=== PATIENT | male | born 1965 | race Caucasian/White ===

== ENCOUNTER 2019-10-14 12:42 | Inpatient (IN) ==
[2019-10-14] MEDS ORDERED: DilTIAZem 50 MG in 0.9 % Sodium Chloride 40 ML IVC SCH (13:00)
[2019-10-14 13:15] LABS: Basophils # 0.1 K/mcL (0.0-0.2); Basophils % 0.6 %; Eosinophils # 0.2 K/mcL (0.0-0.6); Eosinophils % 2.7 %; Hematocrit 37.5 % (37.5-50.1); Hemoglobin 11.3 g/dL (12.9-16.9); Immature Granulocytes % 0.3 % (0-4); Lymphocytes # 0.9 K/mcL (0.6-4.6); Mean Corpuscular HGB Conc 30.1 g/dL (31.6-35.5); Mean Corpuscular Hemoglobin 27.2 pg (28.0-33.3); Mean Corpuscular Volume 90.4 fL (83.0-100.0); Mean Platelet Volume 9.7 fL (9.4-12.4); Monocytes # 0.8 K/mcL (0.0-1.3); Monocytes % 8.6 %; Neutrophils # 6.9 K/mcL (1.6-8.9); Platelet Count 219 K/mcL (140-400); Red Blood Count 4.15 M/mcL (4.19-5.50); Red Cell Distribution Width 16.1 % (11.5-14.5); Segmented Neutrophils % 77.8 %; White Blood Count 8.8 K/mcL (4.3-11.1)
[2019-10-14 13:19] LABS: INR 1.2; Prothrombin Time 13.6 Seconds (9.4-12.1)
[2019-10-14 13:22] LABS: Activated Partial Thrombo Time 42.7 Seconds (26.0-36.0)
[2019-10-14] MEDS ORDERED: 0.9 % Sodium Chloride 250 ML ONE (13:30)
[2019-10-14 13:36] LABS: BUN/Creatinine Ratio 16 (6-26); Blood Urea Nitrogen 30 mg/dL (6-20); Calcium 8.9 mg/dL (8.6-10.3); Carbon Dioxide 20 mEq/L (23-29); Chloride 113 mEq/L (98-107); Glucose 98 mg/dL (70-105); Osmolality,Calculated 298 (280-300); Sodium 141 mEq/L (136-145); eGFR For African Americans 44 (> 60); eGFR For Non-African Americans 36 (> 60)
[2019-10-14 13:37] LABS: Troponin I < 0.03 ng/mL (< 0.04)
[2019-10-14 13:51] LABS: Thyroid Stimulating Hormone 1.145 mcIU/mL (0.340-5.600)
[2019-10-14] MEDS ORDERED: Furosemide 20 MG/2 ML VIAL IVP ONE (14:08)
[2019-10-14] MEDS ORDERED: *HR* Heparin 5,000 UNIT/ML VIAL IVP PRN ×4 (14:27→22:23)
[2019-10-14] MEDS ORDERED: *HR* Heparin 5,000 UNIT/ML VIAL IVP ONE (14:27)
[2019-10-14] MEDS ORDERED: Heparin 25,000 UNIT/250 ML D5W 25,000 UNIT/250 ML IV.SOLN IVC SCH (14:30)
[2019-10-14] MEDS ORDERED: Naloxone 0.4 MG/ML INJ IVP PRN ×2 (14:59→22:23)
[2019-10-14] MEDS: Furosemide 40 MG/4 ML VIAL IVP SCH ×2 (17:44→21:46)
[2019-10-14] MEDS ORDERED: Furosemide 40 MG/4 ML VIAL IVP SCH (18:00)
[2019-10-14] MEDS: DilTIAZem 50 MG in 0.9 % Sodium Chloride 40 ML IVC SCH ×2 (18:35→22:06)
[2019-10-14] MEDS ORDERED: *HR* Metoprolol 5 MG/5 ML VIAL IVP ONE ×2 (18:39→18:44)
[2019-10-14 21:20] LABS: Magnesium 2.1 mg/dL (1.6-2.6); Potassium 4.8 mEq/L (3.5-5.1)
[2019-10-14] MEDS ORDERED: Amiodarone Premix 150 MG/100 ML BAG IVPB ONE (22:23)
[2019-10-14 22:58] LABS: Adenovirus Not Detected (Not Detect); Bordetella Pertussis Not Detected (Not Detect); Chlamydophila pneumoniae Not Detected (Not Detect); Coronavirus 229E Not Detected (Not Detect); Coronavirus HKU1 Not Detected (Not Detect); Coronavirus NL63 Not Detected (Not Detect); Coronavirus OC43 Not Detected (Not Detect); Human Metapneumovirus Not Detected (Not Detect); Human Rhinovirus/Enterovirus Not Detected (Not Detect); Influenza A Subtype 2009 H1 Not Detected (Not Detect); Influenza B Not Detected (Not Detect); Mycoplasma pneumoniae Not Detected (Not Detect); Parainfluenza Virus 1 Not Detected (Not Detect); Parainfluenza Virus 2 Not Detected (Not Detect); Parainfluenza Virus 3 Not Detected (Not Detect); Parainfluenza Virus 4 Not Detected (Not Detect); Respiratory Syncytial Virus Not Detected (Not Detect)
[2019-10-14] MEDS ORDERED: Amiodarone Premix 360 MG/200 ML BAG IVC ONE (23:00)
[2019-10-15 01:30] LABS: Basophils % 0.5 %; Eosinophils # 0.2 K/mcL (0.0-0.6); Eosinophils % 2.5 %; Hemoglobin 10.9 g/dL (12.9-16.9); Immature Granulocytes % 0.5 % (0-4); Lymphocytes # 1.1 K/mcL (0.6-4.6); Mean Corpuscular HGB Conc 30.3 g/dL (31.6-35.5); Mean Corpuscular Hemoglobin 27.2 pg (28.0-33.3); Mean Corpuscular Volume 89.8 fL (83.0-100.0); Mean Platelet Volume 10.3 fL (9.4-12.4); Monocytes # 0.7 K/mcL (0.0-1.3); Monocytes % 8.2 %; Neutrophils # 6.5 K/mcL (1.6-8.9); Platelet Count 215 K/mcL (140-400); Red Blood Count 4.01 M/mcL (4.19-5.50); Red Cell Distribution Width 16.1 % (11.5-14.5); Segmented Neutrophils % 75.3 %; White Blood Count 8.7 K/mcL (4.3-11.1)
[2019-10-15 01:45] LABS: Estimated Average Glucose 111 mg/dl
[2019-10-15 01:46] LABS: Calcium 8.6 mg/dL (8.6-10.3); Phosphorous 4.3 mg/dL (2.7-4.5)
[2019-10-15 01:48] LABS: % Iron Saturation 12 % (20-55); Iron 41 mcg/dL (65-175); Transferrin 235 mg/dL (203-362)
[2019-10-15 02:06] LABS: Ferritin 32 ng/mL (20-250)
[2019-10-15 02:12] LABS: Folate 8.3 ng/mL (3.0-16.0)
[2019-10-15] MEDS: Amiodarone Premix 360 MG/200 ML BAG IVC SCH ×2 (05:17→18:19)
[2019-10-15] MEDS: Heparin 25,000 UNIT/250 ML D5W 25,000 UNIT/250 ML IV.SOLN IVC SCH ×2 (07:23→15:34)
[2019-10-15] MEDS: Furosemide 40 MG/4 ML VIAL IVP SCH ×2 (08:49→20:56)
[2019-10-15] MEDS ORDERED: Furosemide 40 MG/4 ML VIAL IVP ONE (14:00)
[2019-10-15 21:01] LABS: ABG Base Excess -2 mEq/L (-2 to 3); ABG HCO3 24 mEq/L (21-27); ABG Oxygen Saturation 96 % (95-98); ABG PCO2 46 mmHg (35-45); ABG PH 7.33 pH Units (7.32-7.45); ABG PO2 85 mmHg (85-104); ABG TCO2 26 mEq/L (20-26)
[2019-10-16] MEDS: Heparin 25,000 UNIT/250 ML D5W 25,000 UNIT/250 ML IV.SOLN IVC SCH ×2 (00:20→17:36)
[2019-10-16 04:18] LABS: Basophils # 0.1 K/mcL (0.0-0.2); Basophils % 0.6 %; Eosinophils # 0.2 K/mcL (0.0-0.6); Eosinophils % 2.2 %; Hematocrit 37.6 % (37.5-50.1); Hemoglobin 11.3 g/dL (12.9-16.9); Immature Granulocytes % 0.8 % (0-4); Lymphocytes # 0.9 K/mcL (0.6-4.6); Lymphocytes % 10.6 %; Mean Corpuscular HGB Conc 30.1 g/dL (31.6-35.5); Mean Corpuscular Hemoglobin 26.8 pg (28.0-33.3); Mean Corpuscular Volume 89.3 fL (83.0-100.0); Mean Platelet Volume 10.3 fL (9.4-12.4); Monocytes # 0.6 K/mcL (0.0-1.3); Monocytes % 7.2 %; Neutrophils # 6.7 K/mcL (1.6-8.9); Platelet Count 220 K/mcL (140-400); Red Blood Count 4.21 M/mcL (4.19-5.50); Red Cell Distribution Width 16.1 % (11.5-14.5); Segmented Neutrophils % 78.6 %; White Blood Count 8.5 K/mcL (4.3-11.1)
[2019-10-16 04:27] LABS: Calcium 8.7 mg/dL (8.6-10.3); Potassium 4.5 mEq/L (3.5-5.1)
[2019-10-16] MEDS: Amiodarone Premix 360 MG/200 ML BAG IVC SCH ×2 (07:17→20:27)
[2019-10-16] MEDS: Furosemide 40 MG/4 ML VIAL IVP SCH ×2 (08:55→20:15)
[2019-10-16] MEDS ORDERED: *HR* FentaNYL (PF) 100 MCG/2 ML VIAL IVP PRN (12:54)
[2019-10-16] MEDS ORDERED: *HR* Midazolam HCl 5 MG/5 ML VIAL IVP PRN (12:54)
[2019-10-16] MEDS ORDERED: 0.9 % Sodium Chloride 500 ML IVC ONE (12:54)
[2019-10-16] MEDS ORDERED: Lidocaine Viscous Oral Soln 15 ML SOLUTION MM PRN (12:54)
[2019-10-16] MEDS: Metoprolol XL (24 HR) Succ 25 MG TAB.ER.24H PO SCH ×2 (17:02→20:14)
[2019-10-16] MEDS ORDERED: Metoprolol XL (24 HR) Succ 25 MG TAB.ER.24H PO SCH (21:00)
[2019-10-17 01:06] LABS: Basophils % 0.4 %; Eosinophils # 0.3 K/mcL (0.0-0.6); Eosinophils % 2.9 %; Hematocrit 39.3 % (37.5-50.1); Hemoglobin 11.8 g/dL (12.9-16.9); Immature Granulocytes % 0.9 % (0-4); Lymphocytes % 11.6 %; Mean Corpuscular Hemoglobin 26.4 pg (28.0-33.3); Mean Corpuscular Volume 87.9 fL (83.0-100.0); Mean Platelet Volume 9.9 fL (9.4-12.4); Monocytes # 0.7 K/mcL (0.0-1.3); Monocytes % 8.1 %; Neutrophils # 6.8 K/mcL (1.6-8.9); Platelet Count 250 K/mcL (140-400); Red Blood Count 4.47 M/mcL (4.19-5.50); Red Cell Distribution Width 16.1 % (11.5-14.5); Segmented Neutrophils % 76.1 %; White Blood Count 8.9 K/mcL (4.3-11.1)
[2019-10-17 01:25] LABS: Magnesium 1.7 mg/dL (1.6-2.6); Uric Acid 12.4 mg/dL (2.3-7.6)
[2019-10-17 01:27] LABS: Calcium 8.9 mg/dL (8.6-10.3); Potassium 4.4 mEq/L (3.5-5.1)
[2019-10-17] MEDS: Metoprolol XL (24 HR) Succ 25 MG TAB.ER.24H PO SCH ×2 (08:24→20:35)
[2019-10-17] MEDS: Furosemide 40 MG/4 ML VIAL IVP SCH ×2 (08:25→20:36)
[2019-10-17] MEDS: Amiodarone Premix 360 MG/200 ML BAG IVC SCH ×2 (09:24→21:54)
[2019-10-17] MEDS ORDERED: Heparin 25,000 UNIT/250 ML D5W 25,000 UNIT/250 ML IV.SOLN IVC SCH (09:30)
[2019-10-17] MEDS: Heparin 25,000 UNIT/250 ML D5W 25,000 UNIT/250 ML IV.SOLN IVC SCH (12:08)
[2019-10-18 03:20] LABS: Potassium 4.2 mEq/L (3.5-5.1)
[2019-10-18] MEDS: Furosemide 40 MG/4 ML VIAL IVP SCH ×2 (07:44→20:05)
[2019-10-18] MEDS: Heparin 25,000 UNIT/250 ML D5W 25,000 UNIT/250 ML IV.SOLN IVC SCH ×3 (07:44→22:56)
[2019-10-18] MEDS: Metoprolol XL (24 HR) Succ 25 MG TAB.ER.24H PO SCH ×2 (07:44→20:05)
[2019-10-18] MEDS: Amiodarone Premix 360 MG/200 ML BAG IVC SCH (22:55)
[2019-10-19] MEDS ORDERED: Acetaminophen 325 MG TABLET PO ONE (01:35)
[2019-10-19 04:12] LABS: Potassium 4.2 mEq/L (3.5-5.1)
[2019-10-19] MEDS: Metoprolol XL (24 HR) Succ 25 MG TAB.ER.24H PO SCH ×2 (08:09→21:37)
[2019-10-19] MEDS: Furosemide 40 MG/4 ML VIAL IVP SCH ×2 (08:09→21:35)
[2019-10-19] MEDS: Amiodarone Premix 360 MG/200 ML BAG IVC SCH (11:20)
[2019-10-19] MEDS ORDERED: Lidocaine Viscous Oral Soln 15 ML SOLUTION MM PRN (12:40)
[2019-10-19] MEDS ORDERED: 0.9 % Sodium Chloride 500 ML IVC ONE (12:40)
[2019-10-19] MEDS ORDERED: Oxymetazoline Nasal SPRAY BOTTLE NS ONE (13:21)
[2019-10-19] MEDS: Heparin 25,000 UNIT/250 ML D5W 25,000 UNIT/250 ML IV.SOLN IVC SCH (16:08)
[2019-10-19] MEDS: Apixaban 5 MG TABLET PO SCH (21:35)
[2019-10-19] MEDS: *HR* Amiodarone 200 MG TABLET PO SCH (21:35)
[2019-10-19] MEDS ORDERED: Amiodarone Premix 360 MG/200 ML BAG IVC SCH (22:30)
[2019-10-20 05:02] LABS: Calcium 8.8 mg/dL (8.6-10.3); Potassium 4.5 mEq/L (3.5-5.1)
[2019-10-20] MEDS: Apixaban 5 MG TABLET PO SCH ×2 (08:54→20:26)
[2019-10-20] MEDS: *HR* Amiodarone 200 MG TABLET PO SCH ×2 (08:54→20:27)
[2019-10-20] MEDS: Furosemide 40 MG/4 ML VIAL IVP SCH (08:54)
[2019-10-20] MEDS: Metoprolol XL (24 HR) Succ 25 MG TAB.ER.24H PO SCH ×2 (08:54→20:27)
[2019-10-20] MEDS ORDERED: *HR* Amiodarone 200 MG TABLET PO ONE (09:45)
[2019-10-20] MEDS ORDERED: Furosemide 40 MG TABLET PO SCH (17:00)
[2019-10-21] MEDS: Heparin 25,000 UNIT/250 ML D5W 25,000 UNIT/250 ML IV.SOLN IVC SCH (03:53)
[2019-10-21 05:04] LABS: Basophils % 0.5 %; Eosinophils # 0.2 K/mcL (0.0-0.6); Eosinophils % 3.2 %; Hemoglobin 11.7 g/dL (12.9-16.9); Immature Granulocytes % 1.1 % (0-4); Mean Corpuscular HGB Conc 30.8 g/dL (31.6-35.5); Mean Corpuscular Hemoglobin 26.4 pg (28.0-33.3); Mean Corpuscular Volume 85.6 fL (83.0-100.0); Mean Platelet Volume 10.2 fL (9.4-12.4); Monocytes # 0.8 K/mcL (0.0-1.3); Monocytes % 11.2 %; Neutrophils # 5.3 K/mcL (1.6-8.9); Platelet Count 227 K/mcL (140-400); Red Blood Count 4.44 M/mcL (4.19-5.50); Red Cell Distribution Width 15.6 % (11.5-14.5); White Blood Count 7.4 K/mcL (4.3-11.1)
[2019-10-21] MEDS: *HR* Amiodarone 200 MG TABLET PO SCH (09:36)
[2019-10-21] MEDS: Metoprolol XL (24 HR) Succ 25 MG TAB.ER.24H PO SCH (09:36)
[2019-10-21 12:36] VITALS: BP 110/73
== END 2019-10-21 14:08 | disposition home health service (06) ==
LOC: EMEROOARM 12:42 → 2NENU 12:42 → SUATTDRO 16:21 → 2NENU 17:20 → 2NNU 22:14 → 2ANU 10-20 19:08
PROVIDERS: ADMIT Internal Medicine; ATTEND Internal Medicine

== ENCOUNTER 2020-03-23 16:28 | Inpatient (IN) ==
[2020-03-23] MEDS ORDERED: DilTIAZem 50 MG in 0.9 % Sodium Chloride 40 ML IVC SCH (18:30)
[2020-03-23] MEDS ORDERED: *HR* Metoprolol 5 MG/5 ML VIAL IVP PRN (18:30)
[2020-03-23 18:45] LABS: ABG Base Excess -3 mEq/L (-2 to 3); ABG HCO3 23 mEq/L (21-27); ABG Oxygen Saturation 97 % (95-98); ABG PCO2 43 mmHg (35-45); ABG PH 7.33 pH Units (7.32-7.45); ABG PO2 92 mmHg (85-104); ABG TCO2 24 mEq/L (20-26)
[2020-03-23] MEDS ORDERED: Naloxone 0.4 MG/ML INJ IVP PRN (19:36)
[2020-03-23] MEDS ORDERED: *HR* LORazepam 2 MG/ML VIAL IVP ONE (19:49)
[2020-03-23 20:21] LABS: Adenovirus Not Detected (Not Detect); Bordetella Pertussis Not Detected (Not Detect); Chlamydophila pneumoniae Not Detected (Not Detect); Coronavirus 229E Not Detected (Not Detect); Coronavirus HKU1 Not Detected (Not Detect); Coronavirus NL63 Not Detected (Not Detect); Coronavirus OC43 Not Detected (Not Detect); Human Metapneumovirus Not Detected (Not Detect); Human Rhinovirus/Enterovirus Not Detected (Not Detect); Influenza A Subtype 2009 H1 Not Detected (Not Detect); Influenza B Not Detected (Not Detect); Mycoplasma pneumoniae Not Detected (Not Detect); Parainfluenza Virus 1 Not Detected (Not Detect); Parainfluenza Virus 2 Not Detected (Not Detect); Parainfluenza Virus 3 Not Detected (Not Detect); Parainfluenza Virus 4 Not Detected (Not Detect); Respiratory Syncytial Virus Not Detected (Not Detect)
[2020-03-23 20:48] LABS: Basophils # 0.1 K/mcL (0.0-0.2); Basophils % 0.5 %; Eosinophils # 0.2 K/mcL (0.0-0.6); Eosinophils % 1.8 %; Hematocrit 35.9 % (37.5-50.1); Immature Granulocytes % 0.7 % (0-4); Lymphocytes % 9.7 %; Mean Corpuscular HGB Conc 30.6 g/dL (31.6-35.5); Mean Corpuscular Hemoglobin 27.2 pg (28.0-33.3); Mean Corpuscular Volume 88.6 fL (83.0-100.0); Mean Platelet Volume 9.9 fL (9.4-12.4); Monocytes # 0.8 K/mcL (0.0-1.3); Monocytes % 7.8 %; Neutrophils # 8.3 K/mcL (1.6-8.9); Platelet Count 243 K/mcL (140-400); Red Blood Count 4.05 M/mcL (4.19-5.50); Red Cell Distribution Width 17.2 % (11.5-14.5); Segmented Neutrophils % 79.5 %; White Blood Count 10.5 K/mcL (4.3-11.1)
[2020-03-23 21:07] LABS: Calcium 8.3 mg/dL (8.6-10.3); Magnesium 1.9 mg/dL (1.6-2.6); Phosphorous 5.5 mg/dL (2.7-4.5); Potassium 4.5 mEq/L (3.5-5.1)
[2020-03-23] MEDS ORDERED: Albumin 25% 25gram/100mL 25 GM/100 ML IV.SOLN IVPB ONE (21:47)
[2020-03-23] MEDS ORDERED: Furosemide 40 MG/4 ML VIAL IVP ONE (21:48)
[2020-03-23] MEDS: DilTIAZem 50 MG/50 ML IV.SOLN IVC SCH (23:49)
[2020-03-24 00:42] LABS: Basophils % 0.4 %; Eosinophils # 0.2 K/mcL (0.0-0.6); Eosinophils % 2.1 %; Hematocrit 35.6 % (37.5-50.1); Lymphocytes # 1.3 K/mcL (0.6-4.6); Lymphocytes % 12.5 %; Mean Corpuscular HGB Conc 30.9 g/dL (31.6-35.5); Mean Corpuscular Hemoglobin 27.3 pg (28.0-33.3); Mean Corpuscular Volume 88.3 fL (83.0-100.0); Mean Platelet Volume 10.1 fL (9.4-12.4); Monocytes # 1.1 K/mcL (0.0-1.3); Monocytes % 10.2 %; Neutrophils # 7.6 K/mcL (1.6-8.9); Platelet Count 225 K/mcL (140-400); Red Blood Count 4.03 M/mcL (4.19-5.50); Red Cell Distribution Width 17.4 % (11.5-14.5); Segmented Neutrophils % 73.8 %; White Blood Count 10.3 K/mcL (4.3-11.1)
[2020-03-24 01:05] LABS: BUN/Creatinine Ratio 13 (6-26); Blood Urea Nitrogen 36 mg/dL (6-20); Calcium 8.5 mg/dL (8.6-10.3); Carbon Dioxide 21 mEq/L (23-29); Chloride 115 mEq/L (98-107); Glucose 95 mg/dL (70-105); Magnesium 1.9 mg/dL (1.6-2.6); Osmolality,Calculated 308 (280-300); Phosphorous 5.6 mg/dL (2.7-4.5); Potassium 5.4 mEq/L (3.5-5.1); Sodium 145 mEq/L (136-145); Troponin I < 0.03 ng/mL (< 0.04); eGFR For African Americans 29 (> 60); eGFR For Non-African Americans 24 (> 60)
[2020-03-24] MEDS: DilTIAZem 50 MG/50 ML IV.SOLN IVC SCH (04:01)
[2020-03-24] MEDS ORDERED: *HR* Amiodarone 200 MG TABLET PO SCH ×2 (09:00→09:15)
[2020-03-24] MEDS ORDERED: Metoprolol XL (24 HR) Succ 25 MG TAB.ER.24H PO SCH (09:00)
[2020-03-24] MEDS: Cholecalciferol (D-3) 1,000 UNIT (25MCG) TABLET PO SCH (09:30)
[2020-03-24] MEDS: Apixaban 5 MG TABLET PO SCH ×3 (09:30→21:03)
[2020-03-24] MEDS: Metoprolol XL (24 HR) Succ 25 MG TAB.ER.24H PO SCH ×2 (09:30→21:03)
[2020-03-24] MEDS: Isosorbide MONOnitrate (24 HR) 30 MG TAB.ER.24H PO SCH (09:30)
[2020-03-24] MEDS: Cyanocobalamin (B-12) 1,000 MCG TABLET PO SCH (09:30)
[2020-03-24] MEDS: Furosemide 40 MG/4 ML VIAL IVP SCH ×2 (09:31→21:02)
[2020-03-24 10:42] LABS: Uric Acid 8.6 mg/dL (2.3-7.6)
[2020-03-24] MEDS ORDERED: Amiodarone Premix 360 MG/200 ML BAG IVC ONE (10:53)
[2020-03-24] MEDS ORDERED: Amiodarone Premix 360 MG/200 ML BAG IVC SCH (17:00)
[2020-03-24 17:19] LABS: Bacteria,Urine Few per hpf (None-Few); Bilirubin,Urine Negative (Negative); Blood,Urine Large (Negative); Clarity,Urine Clear (Clear); Color,Urine Colorless (Yellow); Glucose,Urine (UA) Normal (Normal); Ketones,Urine Negative (Negative); Leukocyte Esterase,Urine Negative (Negative); Mucus,Urine Few per lpf (None-Few); Nitrite,Urine Negative (Negative); Protein,Urine 70 mg/dL (Neg-Trace); RBC,Urine 30-50 per hpf (0-3); Specific Gravity,Urine 1.008 (1.010-1.025); Urobilinogen,Urine Normal (Normal)
[2020-03-24 17:53] LABS: Sodium, Urine 94.7 mEq/L
[2020-03-24 18:39] LABS: Protein/Creatinine Ratio,Urine 3.53 mg/mg (0.00-0.20)
[2020-03-25 01:40] LABS: Hematocrit 38.2 % (37.5-50.1); Hemoglobin 11.9 g/dL (12.9-16.9); Mean Corpuscular HGB Conc 31.2 g/dL (31.6-35.5); Mean Corpuscular Hemoglobin 27.5 pg (28.0-33.3); Mean Corpuscular Volume 88.2 fL (83.0-100.0); Mean Platelet Volume 10.2 fL (9.4-12.4); Platelet Count 192 K/mcL (140-400); Red Blood Count 4.33 M/mcL (4.19-5.50); Red Cell Distribution Width 17.4 % (11.5-14.5); White Blood Count 10.4 K/mcL (4.3-11.1)
[2020-03-25 01:52] LABS: Magnesium 1.7 mg/dL (1.6-2.6); Potassium 4.8 mEq/L (3.5-5.1)
[2020-03-25] MEDS ORDERED: Albumin 25% 25gram/100mL 25 GM/100 ML IV.SOLN IVPB SCH (08:00)
[2020-03-25] MEDS ORDERED: Albumin 25% 25gram/100mL 25 GM/100 ML IV.SOLN ONE (08:12)
[2020-03-25] MEDS: Furosemide 40 MG/4 ML VIAL IVP SCH (08:20)
[2020-03-25] MEDS: Cholecalciferol (D-3) 1,000 UNIT (25MCG) TABLET PO SCH (08:20)
[2020-03-25] MEDS: Cyanocobalamin (B-12) 1,000 MCG TABLET PO SCH (08:20)
[2020-03-25] MEDS: Apixaban 5 MG TABLET PO SCH (08:20)
[2020-03-25] MEDS: Isosorbide MONOnitrate (24 HR) 30 MG TAB.ER.24H PO SCH (08:20)
[2020-03-25] MEDS ORDERED: *HR* Heparin 5,000 UNIT/ML VIAL IVP PRN ×7 (09:37→20:00)
[2020-03-25] MEDS ORDERED: Heparin 25,000UNIT/250ML 1/2NS 25,000 UNIT/250 ML IV.SOLN IVC SCH ×3 (09:45→20:00)
[2020-03-25] MEDS: Metoprolol XL (24 HR) Succ 25 MG TAB.ER.24H PO SCH ×2 (11:07→19:12)
[2020-03-25 12:12] LABS: Calcium 8.8 mg/dL (8.6-10.3); Potassium 4.3 mEq/L (3.5-5.1)
[2020-03-25] MEDS ORDERED: Apixaban 5 MG TABLET PO SCH (12:15)
[2020-03-25] MEDS: *HR* Amiodarone 200 MG TABLET PO SCH ×2 (12:20→19:12)
[2020-03-25 14:55] LABS: Prothrombin Time 22.3 Seconds (9.4-12.1)
[2020-03-25 14:59] LABS: Hematocrit 34.9 % (37.5-50.1); Hemoglobin 10.5 g/dL (12.9-16.9); Mean Corpuscular HGB Conc 30.1 g/dL (31.6-35.5); Mean Corpuscular Hemoglobin 26.9 pg (28.0-33.3); Mean Corpuscular Volume 89.3 fL (83.0-100.0); Mean Platelet Volume 10.1 fL (9.4-12.4); Platelet Count 218 K/mcL (140-400); Red Blood Count 3.91 M/mcL (4.19-5.50); Red Cell Distribution Width 17.2 % (11.5-14.5); White Blood Count 9.5 K/mcL (4.3-11.1)
[2020-03-25 15:03] LABS: Heparin anti-factor XA UFH > 2.00 IU/mL (0.30-0.70)
[2020-03-25] MEDS: Albumin 25% 25gram/100mL 25 GM/100 ML IV.SOLN IVPB SCH (17:24)
[2020-03-25 19:58] LABS: INR 1.9; Prothrombin Time 22.1 Seconds (9.4-12.1)
[2020-03-25] MEDS: Heparin 25,000UNIT/250ML 1/2NS 25,000 UNIT/250 ML IV.SOLN IVC SCH (20:16)
[2020-03-25] MEDS: *HR* Heparin 5,000 UNIT/ML VIAL IVP PRN (20:17)
[2020-03-26] MEDS: Albumin 25% 25gram/100mL 25 GM/100 ML IV.SOLN IVPB SCH
[2020-03-26 03:00] LABS: Hematocrit 33.2 % (37.5-50.1); Hemoglobin 9.9 g/dL (12.9-16.9); Mean Corpuscular HGB Conc 29.8 g/dL (31.6-35.5); Mean Corpuscular Hemoglobin 26.6 pg (28.0-33.3); Mean Corpuscular Volume 89.2 fL (83.0-100.0); Platelet Count 176 K/mcL (140-400); Red Blood Count 3.72 M/mcL (4.19-5.50); Red Cell Distribution Width 17.1 % (11.5-14.5); White Blood Count 8.3 K/mcL (4.3-11.1)
[2020-03-26 03:20] LABS: Calcium 8.2 mg/dL (8.6-10.3); Potassium 3.9 mEq/L (3.5-5.1)
[2020-03-26] MEDS: Cholecalciferol (D-3) 1,000 UNIT (25MCG) TABLET PO SCH (09:05)
[2020-03-26] MEDS: Metoprolol XL (24 HR) Succ 25 MG TAB.ER.24H PO SCH ×2 (09:05→21:14)
[2020-03-26] MEDS: Cyanocobalamin (B-12) 1,000 MCG TABLET PO SCH (09:05)
[2020-03-26] MEDS: *HR* Amiodarone 200 MG TABLET PO SCH ×2 (09:05→21:14)
[2020-03-26] MEDS: Heparin 25,000UNIT/250ML 1/2NS 25,000 UNIT/250 ML IV.SOLN IVC SCH (21:14)
[2020-03-26] MEDS: *HR* Heparin 5,000 UNIT/ML VIAL IVP PRN (21:45)
[2020-03-27 04:17] LABS: Basophils % 0.4 %; Eosinophils # 0.2 K/mcL (0.0-0.6); Eosinophils % 2.2 %; Hematocrit 35.5 % (37.5-50.1); Hemoglobin 10.6 g/dL (12.9-16.9); Immature Granulocytes % 0.7 % (0-4); Lymphocytes # 0.9 K/mcL (0.6-4.6); Lymphocytes % 10.8 %; Mean Corpuscular HGB Conc 29.9 g/dL (31.6-35.5); Mean Corpuscular Hemoglobin 27.5 pg (28.0-33.3); Mean Corpuscular Volume 92.2 fL (83.0-100.0); Mean Platelet Volume 10.3 fL (9.4-12.4); Monocytes # 0.6 K/mcL (0.0-1.3); Monocytes % 6.9 %; Neutrophils # 6.6 K/mcL (1.6-8.9); Platelet Count 198 K/mcL (140-400); Red Blood Count 3.85 M/mcL (4.19-5.50); White Blood Count 8.3 K/mcL (4.3-11.1)
[2020-03-27 04:36] LABS: Calcium 8.3 mg/dL (8.6-10.3); Magnesium 2.2 mg/dL (1.6-2.6); Potassium 4.2 mEq/L (3.5-5.1)
[2020-03-27 04:45] LABS: INR 1.3; Prothrombin Time 15.1 Seconds (9.4-12.1)
[2020-03-27 04:48] LABS: Activated Partial Thrombo Time 105.3 Seconds (26.0-36.0)
[2020-03-27] MEDS: Cholecalciferol (D-3) 1,000 UNIT (25MCG) TABLET PO SCH (08:37)
[2020-03-27] MEDS: Metoprolol XL (24 HR) Succ 25 MG TAB.ER.24H PO SCH ×2 (08:38→19:37)
[2020-03-27] MEDS: *HR* Amiodarone 200 MG TABLET PO SCH ×2 (08:38→19:37)
[2020-03-27] MEDS: Cyanocobalamin (B-12) 1,000 MCG TABLET PO SCH (08:38)
[2020-03-27] MEDS: Heparin 25,000UNIT/250ML 1/2NS 25,000 UNIT/250 ML IV.SOLN IVC SCH ×2 (19:18→19:38)
[2020-03-28] MEDS ORDERED: Acetaminophen 325 MG TABLET PO ONE (00:25)
[2020-03-28 03:23] LABS: Basophils % 0.4 %; Eosinophils # 0.2 K/mcL (0.0-0.6); Eosinophils % 2.5 %; Hematocrit 35.3 % (37.5-50.1); Hemoglobin 10.7 g/dL (12.9-16.9); Lymphocytes # 1.1 K/mcL (0.6-4.6); Mean Corpuscular HGB Conc 30.3 g/dL (31.6-35.5); Mean Corpuscular Hemoglobin 27.3 pg (28.0-33.3); Mean Corpuscular Volume 90.1 fL (83.0-100.0); Mean Platelet Volume 10.3 fL (9.4-12.4); Monocytes # 0.6 K/mcL (0.0-1.3); Monocytes % 6.4 %; Neutrophils # 7.3 K/mcL (1.6-8.9); Platelet Count 238 K/mcL (140-400); Red Blood Count 3.92 M/mcL (4.19-5.50); Red Cell Distribution Width 16.9 % (11.5-14.5); Segmented Neutrophils % 77.7 %; White Blood Count 9.4 K/mcL (4.3-11.1)
[2020-03-28 03:39] LABS: Potassium 4.5 mEq/L (3.5-5.1)
[2020-03-28] MEDS: Metoprolol XL (24 HR) Succ 25 MG TAB.ER.24H PO SCH ×2 (09:01→19:46)
[2020-03-28] MEDS: *HR* Amiodarone 200 MG TABLET PO SCH ×2 (09:01→19:47)
[2020-03-28] MEDS: Cyanocobalamin (B-12) 1,000 MCG TABLET PO SCH (09:01)
[2020-03-28] MEDS: Cholecalciferol (D-3) 1,000 UNIT (25MCG) TABLET PO SCH (09:01)
[2020-03-28] MEDS ORDERED: Furosemide 40 MG/4 ML VIAL IVP ONE (09:16)
[2020-03-28] MEDS ORDERED: Albumin 25% 25gram/100mL 25 GM/100 ML IV.SOLN IVPB ONE (09:16)
[2020-03-28] MEDS: Heparin 25,000UNIT/250ML 1/2NS 25,000 UNIT/250 ML IV.SOLN IVC SCH (21:08)
[2020-03-29 04:04] LABS: Hematocrit 33.2 % (37.5-50.1); Hemoglobin 10.2 g/dL (12.9-16.9); Mean Corpuscular HGB Conc 30.7 g/dL (31.6-35.5); Mean Corpuscular Volume 91.2 fL (83.0-100.0); Mean Platelet Volume 10.1 fL (9.4-12.4); Platelet Count 181 K/mcL (140-400); Red Blood Count 3.64 M/mcL (4.19-5.50); Red Cell Distribution Width 16.6 % (11.5-14.5)
[2020-03-29 04:23] LABS: Calcium 8.7 mg/dL (8.6-10.3); Potassium 4.3 mEq/L (3.5-5.1)
[2020-03-29] MEDS: Heparin 25,000UNIT/250ML 1/2NS 25,000 UNIT/250 ML IV.SOLN IVC SCH ×2 (05:08→20:20)
[2020-03-29] MEDS: Cyanocobalamin (B-12) 1,000 MCG TABLET PO SCH (08:41)
[2020-03-29] MEDS: *HR* Amiodarone 200 MG TABLET PO SCH ×2 (08:41→20:20)
[2020-03-29] MEDS: Metoprolol XL (24 HR) Succ 25 MG TAB.ER.24H PO SCH ×2 (08:41→20:20)
[2020-03-29] MEDS: Cholecalciferol (D-3) 1,000 UNIT (25MCG) TABLET PO SCH (08:41)
[2020-03-29] MEDS: Furosemide 40 MG/4 ML VIAL IVP SCH ×2 (12:54→20:20)
[2020-03-29] MEDS: Albumin 25% 25gram/100mL 25 GM/100 ML IV.SOLN IVPB SCH ×2 (12:55→22:52)
[2020-03-29] MEDS: *HR* Heparin 5,000 UNIT/ML VIAL IVP PRN (18:42)
[2020-03-30 06:55] LABS: Basophils # 0.1 K/mcL (0.0-0.2); Basophils % 0.6 %; Eosinophils # 0.2 K/mcL (0.0-0.6); Eosinophils % 2.6 %; Hemoglobin 10.5 g/dL (12.9-16.9); Immature Granulocytes % 1.3 % (0-4); Lymphocytes # 1.1 K/mcL (0.6-4.6); Lymphocytes % 11.8 %; Mean Corpuscular HGB Conc 30.9 g/dL (31.6-35.5); Mean Corpuscular Hemoglobin 27.3 pg (28.0-33.3); Mean Corpuscular Volume 88.5 fL (83.0-100.0); Mean Platelet Volume 10.4 fL (9.4-12.4); Monocytes # 0.6 K/mcL (0.0-1.3); Monocytes % 6.7 %; Neutrophils # 6.9 K/mcL (1.6-8.9); Platelet Count 211 K/mcL (140-400); Red Blood Count 3.84 M/mcL (4.19-5.50); Red Cell Distribution Width 16.5 % (11.5-14.5)
[2020-03-30 07:15] LABS: Calcium 9.3 mg/dL (8.6-10.3); Magnesium 1.8 mg/dL (1.6-2.6); Potassium 4.1 mEq/L (3.5-5.1)
[2020-03-30] MEDS: Heparin 25,000UNIT/250ML 1/2NS 25,000 UNIT/250 ML IV.SOLN IVC SCH ×2 (07:34→20:10)
[2020-03-30] MEDS: Cyanocobalamin (B-12) 1,000 MCG TABLET PO SCH (07:44)
[2020-03-30] MEDS: *HR* Amiodarone 200 MG TABLET PO SCH ×2 (07:44→20:11)
[2020-03-30] MEDS: Cholecalciferol (D-3) 1,000 UNIT (25MCG) TABLET PO SCH (07:44)
[2020-03-30] MEDS: Metoprolol XL (24 HR) Succ 25 MG TAB.ER.24H PO SCH ×2 (07:44→20:11)
[2020-03-30] MEDS: Furosemide 40 MG/4 ML VIAL IVP SCH ×2 (07:44→20:11)
[2020-03-30] MEDS ORDERED: Acetaminophen 325 MG TABLET PO PRN (23:42)
[2020-03-31 04:42] LABS: Calcium 9.4 mg/dL (8.6-10.3); Magnesium 1.8 mg/dL (1.6-2.6); Phosphorous 3.9 mg/dL (2.7-4.5)
[2020-03-31] MEDS: Cholecalciferol (D-3) 1,000 UNIT (25MCG) TABLET PO SCH (08:50)
[2020-03-31] MEDS: Metoprolol XL (24 HR) Succ 25 MG TAB.ER.24H PO SCH (08:51)
[2020-03-31] MEDS: Furosemide 40 MG/4 ML VIAL IVP SCH (08:51)
[2020-03-31] MEDS: Cyanocobalamin (B-12) 1,000 MCG TABLET PO SCH (08:51)
[2020-03-31] MEDS: *HR* Amiodarone 200 MG TABLET PO SCH (08:52)
[2020-03-31] MEDS ORDERED: 0.9 % Sodium Chloride 500 ML ONE (11:24)
[2020-03-31 12:48] VITALS: BP 114/78
== END 2020-03-31 16:01 | disposition home or self-care (01) | DRG 291 ==
LOC: 2ANU → SUATTDRO 18:15 → 2NNU 03-24 12:50 → SUATTDRO 03-24 13:16 → 2ANU 03-27 11:50
PROVIDERS: ADMIT Student in an Organized Health Care Education/Training Program; ATTEND Internal Medicine

== ENCOUNTER 2020-11-15 17:57 | Inpatient (IN) ==
[2020-11-15 23:32] LABS: Hemoglobin 9.5 g/dL (12.9-16.9); Immature Granulocytes % 0.6 % (0-4); Lymphocytes % 9.9 %; Mean Corpuscular HGB Conc 29.7 g/dL (31.6-35.5); Mean Corpuscular Hemoglobin 27.6 pg (28.0-33.3); Mean Platelet Volume 9.9 fL (9.4-12.4); Monocytes % 8.8 %; Platelet Count 184 K/mcL (140-400); Red Blood Count 3.44 M/mcL (4.19-5.50); Red Cell Distribution Width 16.8 % (11.5-14.5); Segmented Neutrophils % 78.1 %; White Blood Count 8.1 K/mcL (4.3-11.1)
[2020-11-15 23:33] LABS: Basophils # 0.1 K/mcL (0.0-0.2); Basophils % 0.6 %; Eosinophils # 0.2 K/mcL (0.0-0.6); Lymphocytes # 0.8 K/mcL (0.6-4.6); Monocytes # 0.7 K/mcL (0.0-1.3); Neutrophils # 6.3 K/mcL (1.6-8.9)
[2020-11-15] MEDS ORDERED: Perflutren Lipid Microsphere 1.3 ML in 0.9 % Sodium Chloride 8.7 ML IVP PRN (23:35)
[2020-11-15] MEDS ORDERED: Ondansetron 4 MG/2 ML VIAL IVP PRN (23:38)
[2020-11-15] MEDS ORDERED: Acetaminophen 325 MG TABLET PO PRN (23:38)
[2020-11-15] MEDS ORDERED: Naloxone 0.4 MG/ML INJ IVP PRN (23:38)
[2020-11-15] MEDS: Apixaban 5 MG TABLET PO SCH (23:47)
[2020-11-15] MEDS: Gabapentin 300 MG CAPSULE PO SCH (23:47)
[2020-11-15 23:49] LABS: INR 1.9; Prothrombin Time 21.6 Seconds (9.4-12.1)
[2020-11-15 23:52] LABS: Activated Partial Thrombo Time 45.8 Seconds (26.0-36.0); Estimated Average Glucose 108 mg/dl; Hemoglobin A1C 5.4 %
[2020-11-15 23:57] LABS: Albumin 3.2 g/dL (3.5-5.7); Bilirubin,Total 0.5 mg/dL (0.3-1.0); Calcium 8.1 mg/dL (8.6-10.3); Magnesium 1.7 mg/dL (1.6-2.6); Potassium 5.4 mEq/L (3.5-5.1); Troponin I 0.06 ng/mL (< 0.04)
[2020-11-16 01:36] LABS: Globulin 3.2 g/dL (2.4-3.5); Total Protein 6.4 g/dL (6.4-8.9)
[2020-11-16 02:17] LABS: % Iron Saturation 12 % (20-55); Iron 28 mcg/dL (65-175); Transferrin 173 mg/dL (203-362)
[2020-11-16] MEDS ORDERED: *HR* Metoprolol 5 MG/5 ML VIAL IVP ONE (02:24)
[2020-11-16 02:34] LABS: Ferritin 29 ng/mL (20-250)
[2020-11-16 03:48] LABS: Folate 8.1 ng/mL (3.0-16.0)
[2020-11-16 03:51] LABS: Vitamin B12 > 1500 pg/mL (250-1100)
[2020-11-16] MEDS: hydrALAZINE 10 MG TABLET PO SCH ×3 (08:28→16:55)
[2020-11-16] MEDS: Bumetanide 1 MG TABLET PO SCH (08:28)
[2020-11-16] MEDS: allopurinoL 100 MG TABLET PO SCH (08:28)
[2020-11-16] MEDS: Metoprolol XL (24 HR) Succ 25 MG TAB.ER.24H PO SCH ×2 (08:28→21:24)
[2020-11-16] MEDS: Isosorbide MONOnitrate (24 HR) 30 MG TAB.ER.24H PO SCH (08:28)
[2020-11-16] MEDS: Cyanocobalamin (B-12) 1,000 MCG TABLET PO SCH (08:28)
[2020-11-16] MEDS: Apixaban 5 MG TABLET PO SCH ×2 (08:28→21:24)
[2020-11-16] MEDS: Gabapentin 300 MG CAPSULE PO SCH ×2 (08:28→21:25)
[2020-11-16] MEDS: *HR* Amiodarone 200 MG TABLET PO SCH (08:28)
[2020-11-16] MEDS: Iron Sucrose Complex 250 MG in 0.9 % Sodium Chloride 250 ML IVPB SCH (21:25)
[2020-11-17 03:33] LABS: Hematocrit 33.7 % (37.5-50.1); Red Cell Distribution Width 16.8 % (11.5-14.5)
[2020-11-17 03:34] LABS: Hemoglobin 9.9 g/dL (12.9-16.9); Mean Corpuscular HGB Conc 29.4 g/dL (31.6-35.5); Mean Corpuscular Hemoglobin 28.3 pg (28.0-33.3); Mean Corpuscular Volume 96.3 fL (83.0-100.0); Mean Platelet Volume 10.8 fL (9.4-12.4); Platelet Count 170 K/mcL (140-400); White Blood Count 7.8 K/mcL (4.3-11.1)
[2020-11-17 03:51] LABS: Calcium 7.7 mg/dL (8.6-10.3); Chol/HDL Ratio 2.5 (0-4.9); Magnesium 1.8 mg/dL (1.6-2.6); Phosphorous 5.7 mg/dL (2.7-4.5); Potassium 5.4 mEq/L (3.5-5.1)
[2020-11-17] MEDS: Gabapentin 300 MG CAPSULE PO SCH ×2 (08:26→19:53)
[2020-11-17] MEDS: *HR* Amiodarone 200 MG TABLET PO SCH (08:26)
[2020-11-17] MEDS: hydrALAZINE 10 MG TABLET PO SCH ×3 (08:26→16:15)
[2020-11-17] MEDS: Bumetanide 1 MG TABLET PO SCH (08:27)
[2020-11-17] MEDS: Metoprolol XL (24 HR) Succ 25 MG TAB.ER.24H PO SCH ×2 (08:27→19:53)
[2020-11-17] MEDS: Cyanocobalamin (B-12) 1,000 MCG TABLET PO SCH (08:27)
[2020-11-17] MEDS: Isosorbide MONOnitrate (24 HR) 30 MG TAB.ER.24H PO SCH (08:27)
[2020-11-17] MEDS: allopurinoL 100 MG TABLET PO SCH (08:27)
[2020-11-17] MEDS: Apixaban 5 MG TABLET PO SCH ×2 (08:27→19:53)
[2020-11-17] MEDS: Iron Sucrose Complex 250 MG in 0.9 % Sodium Chloride 250 ML IVPB SCH (08:30)
[2020-11-18 04:20] LABS: Hematocrit 30.7 % (37.5-50.1); Hemoglobin 9.1 g/dL (12.9-16.9); Mean Corpuscular HGB Conc 29.6 g/dL (31.6-35.5); Mean Corpuscular Hemoglobin 27.9 pg (28.0-33.3); Mean Corpuscular Volume 94.2 fL (83.0-100.0); Mean Platelet Volume 10.5 fL (9.4-12.4); Platelet Count 178 K/mcL (140-400); Red Blood Count 3.26 M/mcL (4.19-5.50); Red Cell Distribution Width 16.7 % (11.5-14.5); White Blood Count 8.1 K/mcL (4.3-11.1)
[2020-11-18 04:36] LABS: Calcium 7.4 mg/dL (8.6-10.3); Potassium 4.7 mEq/L (3.5-5.1)
[2020-11-18] MEDS: Bumetanide 1 MG TABLET PO SCH (07:21)
[2020-11-18] MEDS: *HR* Amiodarone 200 MG TABLET PO SCH (07:21)
[2020-11-18] MEDS: Gabapentin 300 MG CAPSULE PO SCH (07:21)
[2020-11-18] MEDS: hydrALAZINE 10 MG TABLET PO SCH ×2 (07:21→11:31)
[2020-11-18] MEDS: Apixaban 5 MG TABLET PO SCH (07:21)
[2020-11-18] MEDS: Isosorbide MONOnitrate (24 HR) 30 MG TAB.ER.24H PO SCH (07:21)
[2020-11-18] MEDS: allopurinoL 100 MG TABLET PO SCH (07:22)
[2020-11-18] MEDS: Metoprolol XL (24 HR) Succ 25 MG TAB.ER.24H PO SCH (07:22)
[2020-11-18] MEDS: Cyanocobalamin (B-12) 1,000 MCG TABLET PO SCH (07:22)
[2020-11-18 11:48] VITALS: BP 106/72
== END 2020-11-18 13:29 | disposition home or self-care (01) | DRG 205 ==
LOC: 2ANU → SUATTDRO 20:49
PROVIDERS: ADMIT Internal Medicine; ATTEND Pharmacist

== ENCOUNTER 2020-11-24 01:16 | Inpatient (IN) ==
[2020-11-24] MEDS ORDERED: Naloxone 0.4 MG/ML INJ IVP PRN (02:04)
[2020-11-24] MEDS ORDERED: Melatonin 3 MG TABLET PO PRN (02:04)
[2020-11-24] MEDS ORDERED: Ondansetron 4 MG/2 ML VIAL IVP PRN (02:04)
[2020-11-24 03:34] LABS: Basophils # 0.1 K/mcL (0.0-0.2); Basophils % 0.5 %; Eosinophils # 0.2 K/mcL (0.0-0.6); Eosinophils % 1.7 %; Hematocrit 31.5 % (37.5-50.1); Hemoglobin 9.2 g/dL (12.9-16.9); Immature Granulocytes % 0.8 % (0-4); Lymphocytes # 0.8 K/mcL (0.6-4.6); Lymphocytes % 8.1 %; Mean Corpuscular HGB Conc 29.2 g/dL (31.6-35.5); Mean Corpuscular Hemoglobin 28.7 pg (28.0-33.3); Mean Corpuscular Volume 98.1 fL (83.0-100.0); Mean Platelet Volume 10.8 fL (9.4-12.4); Monocytes # 0.7 K/mcL (0.0-1.3); Monocytes % 7.7 %; Neutrophils # 7.7 K/mcL (1.6-8.9); Platelet Count 182 K/mcL (140-400); Red Blood Count 3.21 M/mcL (4.19-5.50); Red Cell Distribution Width 17.7 % (11.5-14.5); Segmented Neutrophils % 81.2 %; White Blood Count 9.5 K/mcL (4.3-11.1)
[2020-11-24 03:52] LABS: Alanine Aminotransferase 12 Units/L (7-52); Albumin 3.2 g/dL (3.5-5.7); Albumin/Globulin Ratio 1.1 (1.1-2.2); Alkaline Phosphatase 107 Units/L (34-104); Aspartate Amino Transferase 14 Units/L (13-39); BUN/Creatinine Ratio 9 (6-26); Bilirubin,Total 0.4 mg/dL (0.3-1.0); Blood Urea Nitrogen 31 mg/dL (6-20); Calcium 7.9 mg/dL (8.6-10.3); Carbon Dioxide 22 mEq/L (23-29); Chloride 112 mEq/L (98-107); Glucose 101 mg/dL (70-105); Magnesium 1.8 mg/dL (1.6-2.6); Osmolality,Calculated 303 (280-300); Phosphorous 3.5 mg/dL (2.7-4.5); Potassium 3.9 mEq/L (3.5-5.1); Sodium 143 mEq/L (136-145); Total Protein 6.2 g/dL (6.4-8.9); eGFR For African Americans 23 (> 60); eGFR For Non-African Americans 19 (> 60)
[2020-11-24 03:53] LABS: Troponin I < 0.03 ng/mL (< 0.04)
[2020-11-24] MEDS ORDERED: Albumin 25% 25gram/100mL 25 GM/100 ML IV.SOLN IVPB ONE (08:46)
[2020-11-24] MEDS: Apixaban 5 MG TABLET PO SCH ×2 (09:41→20:23)
[2020-11-24] MEDS: Furosemide 40 MG/4 ML VIAL IVP SCH (10:44)
[2020-11-25 04:01] LABS: Eosinophils % 2.1 %; Hematocrit 31.9 % (37.5-50.1); Lymphocytes % 7.7 %
[2020-11-25 04:03] LABS: Basophils % 0.4 %; Eosinophils # 0.2 K/mcL (0.0-0.6); Hemoglobin 9.4 g/dL (12.9-16.9); Lymphocytes # 0.6 K/mcL (0.6-4.6); Mean Corpuscular HGB Conc 29.5 g/dL (31.6-35.5); Mean Corpuscular Hemoglobin 28.7 pg (28.0-33.3); Mean Corpuscular Volume 97.6 fL (83.0-100.0); Mean Platelet Volume 10.2 fL (9.4-12.4); Monocytes # 0.6 K/mcL (0.0-1.3); Neutrophils # 5.9 K/mcL (1.6-8.9); Platelet Count 168 K/mcL (140-400); Red Blood Count 3.27 M/mcL (4.19-5.50); Red Cell Distribution Width 17.6 % (11.5-14.5); Segmented Neutrophils % 80.8 %; White Blood Count 7.3 K/mcL (4.3-11.1)
[2020-11-25 04:20] LABS: Calcium 8.2 mg/dL (8.6-10.3); Phosphorous 5.2 mg/dL (2.7-4.5); Potassium 4.7 mEq/L (3.5-5.1)
[2020-11-25] MEDS: Acetaminophen 325 MG TABLET PO PRN (06:07)
[2020-11-25] MEDS ORDERED: Albumin 25% 25gram/100mL 25 GM/100 ML IV.SOLN IVPB ONE ×2 (08:02→15:00)
[2020-11-25] MEDS: Gabapentin 300 MG CAPSULE PO SCH (10:12)
[2020-11-25] MEDS: Metoprolol XL (24 HR) Succ 25 MG TAB.ER.24H PO SCH ×2 (10:12→19:22)
[2020-11-25] MEDS: Isosorbide MONOnitrate (24 HR) 30 MG TAB.ER.24H PO SCH (10:14)
[2020-11-25] MEDS: Apixaban 5 MG TABLET PO SCH ×2 (10:16→19:22)
[2020-11-25] MEDS: *HR* Amiodarone 200 MG TABLET PO SCH (10:16)
[2020-11-25] MEDS: Furosemide 40 MG/4 ML VIAL IVP SCH ×2 (10:17→19:22)
[2020-11-25] MEDS: hydrALAZINE 10 MG TABLET PO SCH ×3 (10:18→17:26)
[2020-11-25] MEDS: Albumin 25% 25gram/100mL 25 GM/100 ML IV.SOLN IVPB SCH (17:01)
[2020-11-26 05:18] LABS: Basophils # 0.1 K/mcL (0.0-0.2); Basophils % 0.6 %; Eosinophils # 0.2 K/mcL (0.0-0.6); Eosinophils % 2.6 %; Hematocrit 29.4 % (37.5-50.1); Immature Granulocytes % 0.7 % (0-4); Lymphocytes # 0.6 K/mcL (0.6-4.6); Lymphocytes % 7.4 %; Mean Corpuscular HGB Conc 30.6 g/dL (31.6-35.5); Mean Corpuscular Hemoglobin 28.2 pg (28.0-33.3); Mean Corpuscular Volume 92.2 fL (83.0-100.0); Mean Platelet Volume 10.8 fL (9.4-12.4); Monocytes # 0.6 K/mcL (0.0-1.3); Monocytes % 7.6 %; Neutrophils # 6.8 K/mcL (1.6-8.9); Platelet Count 160 K/mcL (140-400); Red Blood Count 3.19 M/mcL (4.19-5.50); Red Cell Distribution Width 17.3 % (11.5-14.5); Segmented Neutrophils % 81.1 %; White Blood Count 8.4 K/mcL (4.3-11.1)
[2020-11-26] MEDS: Albumin 25% 25gram/100mL 25 GM/100 ML IV.SOLN IVPB SCH ×2 (05:26→17:11)
[2020-11-26 05:33] LABS: Calcium 8.6 mg/dL (8.6-10.3); Magnesium 1.8 mg/dL (1.6-2.6); Phosphorous 4.4 mg/dL (2.7-4.5)
[2020-11-26] MEDS: Gabapentin 300 MG CAPSULE PO SCH (08:59)
[2020-11-26] MEDS: Furosemide 40 MG/4 ML VIAL IVP SCH ×2 (08:59→21:18)
[2020-11-26] MEDS: Apixaban 5 MG TABLET PO SCH ×2 (08:59→21:16)
[2020-11-26] MEDS: hydrALAZINE 10 MG TABLET PO SCH ×3 (09:00→17:11)
[2020-11-26] MEDS: Isosorbide MONOnitrate (24 HR) 30 MG TAB.ER.24H PO SCH (09:00)
[2020-11-26] MEDS: Metoprolol XL (24 HR) Succ 25 MG TAB.ER.24H PO SCH ×2 (09:00→21:16)
[2020-11-26] MEDS: *HR* Amiodarone 200 MG TABLET PO SCH (09:00)
[2020-11-26] MEDS: Acetaminophen 325 MG TABLET PO PRN (14:01)
[2020-11-27 01:22] LABS: Basophils % 0.4 %; Eosinophils # 0.2 K/mcL (0.0-0.6); Eosinophils % 2.5 %; Hematocrit 32.6 % (37.5-50.1); Hemoglobin 9.5 g/dL (12.9-16.9); Immature Granulocytes % 0.6 % (0-4); Lymphocytes # 0.6 K/mcL (0.6-4.6); Lymphocytes % 7.8 %; Mean Corpuscular HGB Conc 29.1 g/dL (31.6-35.5); Mean Corpuscular Hemoglobin 28.2 pg (28.0-33.3); Mean Corpuscular Volume 96.7 fL (83.0-100.0); Monocytes # 0.6 K/mcL (0.0-1.3); Monocytes % 7.1 %; Neutrophils # 6.6 K/mcL (1.6-8.9); Platelet Count 167 K/mcL (140-400); Red Blood Count 3.37 M/mcL (4.19-5.50); Red Cell Distribution Width 17.2 % (11.5-14.5); Segmented Neutrophils % 81.6 %; White Blood Count 8.1 K/mcL (4.3-11.1)
[2020-11-27 01:41] LABS: Calcium 9.2 mg/dL (8.6-10.3); Potassium 4.4 mEq/L (3.5-5.1)
[2020-11-27] MEDS: Albumin 25% 25gram/100mL 25 GM/100 ML IV.SOLN IVPB SCH ×2 (05:18→16:45)
[2020-11-27] MEDS: Apixaban 5 MG TABLET PO SCH ×2 (08:26→21:36)
[2020-11-27] MEDS: hydrALAZINE 10 MG TABLET PO SCH ×3 (08:26→16:45)
[2020-11-27] MEDS: *HR* Amiodarone 200 MG TABLET PO SCH (08:26)
[2020-11-27] MEDS: Isosorbide MONOnitrate (24 HR) 30 MG TAB.ER.24H PO SCH (08:26)
[2020-11-27] MEDS: Gabapentin 300 MG CAPSULE PO SCH (08:26)
[2020-11-27] MEDS: Metoprolol XL (24 HR) Succ 25 MG TAB.ER.24H PO SCH ×2 (08:27→21:36)
[2020-11-27] MEDS: Furosemide 40 MG/4 ML VIAL IVP SCH ×2 (08:27→21:37)
[2020-11-27] MEDS ORDERED: Ferumoxytol 510 MG in 0.9 % Sodium Chloride 100 ML IVPB ONE (13:05)
[2020-11-27] MEDS: Acetaminophen 325 MG TABLET PO PRN (13:50)
[2020-11-28 03:54] LABS: Calcium 8.9 mg/dL (8.6-10.3); Potassium 4.4 mEq/L (3.5-5.1)
[2020-11-28] MEDS: Albumin 25% 25gram/100mL 25 GM/100 ML IV.SOLN IVPB SCH ×2 (06:16→17:40)
[2020-11-28] MEDS: Gabapentin 300 MG CAPSULE PO SCH (08:55)
[2020-11-28] MEDS: *HR* Amiodarone 200 MG TABLET PO SCH (08:55)
[2020-11-28] MEDS: hydrALAZINE 10 MG TABLET PO SCH ×3 (08:55→17:39)
[2020-11-28] MEDS: Furosemide 40 MG/4 ML VIAL IVP SCH ×2 (08:55→20:49)
[2020-11-28] MEDS: Metoprolol XL (24 HR) Succ 25 MG TAB.ER.24H PO SCH ×2 (08:55→20:50)
[2020-11-28] MEDS: Apixaban 5 MG TABLET PO SCH ×2 (08:55→20:49)
[2020-11-28] MEDS: Isosorbide MONOnitrate (24 HR) 30 MG TAB.ER.24H PO SCH (08:55)
[2020-11-28] MEDS: Acetaminophen 325 MG TABLET PO PRN (21:36)
[2020-11-29 04:01] LABS: Calcium 8.2 mg/dL (8.6-10.3); Potassium 4.8 mEq/L (3.5-5.1)
[2020-11-29] MEDS: Albumin 25% 25gram/100mL 25 GM/100 ML IV.SOLN IVPB SCH (05:34)
[2020-11-29] MEDS: Gabapentin 300 MG CAPSULE PO SCH (08:31)
[2020-11-29] MEDS: Apixaban 5 MG TABLET PO SCH (08:31)
[2020-11-29] MEDS: *HR* Amiodarone 200 MG TABLET PO SCH (08:31)
[2020-11-29] MEDS: hydrALAZINE 10 MG TABLET PO SCH ×2 (08:31→12:04)
[2020-11-29] MEDS: Metoprolol XL (24 HR) Succ 25 MG TAB.ER.24H PO SCH (08:31)
[2020-11-29] MEDS: Isosorbide MONOnitrate (24 HR) 30 MG TAB.ER.24H PO SCH (08:32)
[2020-11-29] MEDS: Furosemide 40 MG/4 ML VIAL IVP SCH (08:32)
[2020-11-29 11:37] VITALS: BP 137/75
== END 2020-11-29 15:21 | disposition home health service (06) | DRG 291 ==
LOC: 3BNU → SUATTDRO 01:16 → 2ANU 11-25 15:37
PROVIDERS: ADMIT Family Medicine; ATTEND Internal Medicine

== ENCOUNTER 2021-03-01 01:47 | Inpatient (IN) ==
[2021-03-01] MEDS ORDERED: Naloxone 0.4 MG/ML INJ IVP PRN (04:08)
[2021-03-01] MEDS ORDERED: Acetaminophen 325 MG TABLET PO PRN (04:19)
[2021-03-01 04:40] LABS: Basophils # 0.1 K/mcL (0.0-0.2); Basophils % 0.7 %; Eosinophils # 0.2 K/mcL (0.0-0.6); Eosinophils % 2.9 %; Hematocrit 31.6 % (37.5-50.1); Hemoglobin 9.5 g/dL (12.9-16.9); Immature Granulocytes % 0.9 % (0-4); Lymphocytes # 0.9 K/mcL (0.6-4.6); Lymphocytes % 11.1 %; Mean Corpuscular HGB Conc 30.1 g/dL (31.6-35.5); Mean Corpuscular Hemoglobin 28.4 pg (28.0-33.3); Mean Corpuscular Volume 94.6 fL (83.0-100.0); Mean Platelet Volume 10.1 fL (9.4-12.4); Monocytes # 0.7 K/mcL (0.0-1.3); Neutrophils # 6.1 K/mcL (1.6-8.9); Platelet Count 213 K/mcL (140-400); Red Blood Count 3.34 M/mcL (4.19-5.50); Red Cell Distribution Width 15.2 % (11.5-14.5); Segmented Neutrophils % 75.4 %
[2021-03-01 05:03] LABS: Albumin 3.8 g/dL (3.5-5.7); Albumin/Globulin Ratio 1.3 (1.1-2.2); Bilirubin,Total 0.3 mg/dL (0.3-1.0); Calcium 8.4 mg/dL (8.6-10.3); Total Protein 6.8 g/dL (6.4-8.9)
[2021-03-01] MEDS ORDERED: 0.9 % Sodium Chloride 250 ML IVC PRN (08:10)
[2021-03-01] MEDS ORDERED: *HR* Heparin 10,000 UNIT/10 ML VIAL IV PRN (08:10)
[2021-03-01] MEDS ORDERED: 0.9 % Sodium Chloride 1,000 ML PRIME SCH (08:15)
[2021-03-01] MEDS ORDERED: *HR* Midazolam HCl 2 MG/2 ML VIAL IVP ONE (08:30)
[2021-03-01] MEDS ORDERED: *HR* FentaNYL (PF) 100 MCG/2 ML VIAL IVP ONE (08:30)
[2021-03-01] MEDS: hydrALAZINE 10 MG TABLET PO SCH ×3 (08:52→17:21)
[2021-03-01] MEDS ORDERED: CeFAZolin 2,000MG/50ML DUPLEX 2,000 MG/50 ML BAG IVPB ONE (09:00)
[2021-03-01] MEDS ORDERED: Heparin 1,000 UNITS/500 mL 500 ML ONE (09:07)
[2021-03-01] MEDS ORDERED: 0.9 % Sodium Chloride 500 ML ONE (09:13)
[2021-03-01 09:52] LABS: Hepatitis B Surface Antibody < 3.10 mIU/mL
[2021-03-01] MEDS ORDERED: *HR* Heparin 5,000 UNIT/ML VIAL ONE (09:57)
[2021-03-01 10:03] LABS: Hepatitis B Surface Antigen Nonreactive (Nonreactive)
[2021-03-01] MEDS: Cyanocobalamin (B-12) 1,000 MCG TABLET PO SCH (10:42)
[2021-03-01] MEDS: Metoprolol XL (24 HR) Succ 25 MG TAB.ER.24H PO SCH ×2 (10:42→20:18)
[2021-03-01] MEDS: allopurinoL 100 MG TABLET PO SCH (10:42)
[2021-03-01] MEDS: Apixaban 5 MG TABLET PO SCH ×2 (10:43→20:19)
[2021-03-01] MEDS: *HR* Amiodarone 200 MG TABLET PO SCH (10:43)
[2021-03-01] MEDS: Isosorbide MONOnitrate (24 HR) 30 MG TAB.ER.24H PO SCH (10:43)
[2021-03-01] MEDS: Furosemide 40 MG/4 ML VIAL IVP SCH (10:44)
[2021-03-01] MEDS ORDERED: Albumin 25% 25gram/100mL 0 GM/0 ML IV.SOLN ONE (15:00)
[2021-03-02 07:26] LABS: Calcium 8.2 mg/dL (8.6-10.3); Potassium 5.3 mEq/L (3.5-5.1)
[2021-03-02] MEDS: Cyanocobalamin (B-12) 1,000 MCG TABLET PO SCH (07:43)
[2021-03-02] MEDS: Apixaban 5 MG TABLET PO SCH ×2 (07:44→20:24)
[2021-03-02] MEDS: allopurinoL 100 MG TABLET PO SCH (07:44)
[2021-03-02] MEDS ORDERED: 0.9 % Sodium Chloride 250 ML IVC PRN ×2 (07:53→14:23)
[2021-03-02] MEDS ORDERED: *HR* Heparin 10,000 UNIT/10 ML VIAL IV PRN (07:53)
[2021-03-02] MEDS: hydrALAZINE 10 MG TABLET PO SCH ×3 (07:54→16:33)
[2021-03-02] MEDS ORDERED: 0.9 % Sodium Chloride 1,000 ML PRIME SCH ×2 (08:00→14:30)
[2021-03-02] MEDS: Metoprolol XL (24 HR) Succ 25 MG TAB.ER.24H PO SCH ×2 (11:45→20:23)
[2021-03-02] MEDS: *HR* Amiodarone 200 MG TABLET PO SCH (11:45)
[2021-03-02] MEDS: Isosorbide MONOnitrate (24 HR) 30 MG TAB.ER.24H PO SCH (11:45)
[2021-03-02] MEDS: Furosemide 40 MG/4 ML VIAL IVP SCH (11:47)
[2021-03-03 03:36] LABS: Hematocrit 31.8 % (37.5-50.1); Hemoglobin 9.9 g/dL (12.9-16.9); Mean Corpuscular HGB Conc 31.1 g/dL (31.6-35.5); Mean Corpuscular Hemoglobin 28.5 pg (28.0-33.3); Mean Corpuscular Volume 91.6 fL (83.0-100.0); Mean Platelet Volume 10.1 fL (9.4-12.4); Platelet Count 195 K/mcL (140-400); Red Blood Count 3.47 M/mcL (4.19-5.50); Red Cell Distribution Width 15.3 % (11.5-14.5); White Blood Count 8.1 K/mcL (4.3-11.1)
[2021-03-03 03:57] LABS: Calcium 8.8 mg/dL (8.6-10.3); Potassium 4.4 mEq/L (3.5-5.1)
[2021-03-03] MEDS: Furosemide 40 MG/4 ML VIAL IVP SCH (10:34)
[2021-03-03] MEDS: Metoprolol XL (24 HR) Succ 25 MG TAB.ER.24H PO SCH (10:35)
[2021-03-03] MEDS: Isosorbide MONOnitrate (24 HR) 30 MG TAB.ER.24H PO SCH (10:35)
[2021-03-03] MEDS: allopurinoL 100 MG TABLET PO SCH (10:35)
[2021-03-03] MEDS: *HR* Amiodarone 200 MG TABLET PO SCH (10:35)
[2021-03-03] MEDS: hydrALAZINE 10 MG TABLET PO SCH ×3 (10:36→17:32)
[2021-03-03] MEDS: Apixaban 5 MG TABLET PO SCH (10:36)
[2021-03-03] MEDS: Cyanocobalamin (B-12) 1,000 MCG TABLET PO SCH (10:36)
[2021-03-03 11:03] VITALS: BP 124/68; PULSE 92; TEMP 98.2; O2SAT 94
[2021-03-03] MEDS ORDERED: *HR* Heparin 10,000 UNIT/10 ML VIAL IV PRN (14:28)
== END 2021-03-03 19:33 | disposition home or self-care (01) | DRG 673 ==
LOC: 2ANU → SUATTDRO 01:53
PROVIDERS: ADMIT Family Medicine; ATTEND Internal Medicine
PROC: IRPERMA (~2021-03-01)